=== PATIENT | female | born 1930 | race Caucasian/White ===

== ENCOUNTER → 2019-06-29 | Outpatient (CLI) | payer MEDICARE ==
[~2019-06-29] MED LIST: ALBU2.5V5 NEB; AMLO10TA4 PO; ASPI-630 PO; BUDE10.22 IH; CETI10TA24 PO; HYDR12.572 PO; ISOS30TA4 PO; MAGN200T7 PO; METO25TA4 PO; SIMV40TA18 PO; TIOT18CA IH
--- NOTE | 2019-06-29 10:42 | RAD ---
ANKLE LEFT 3V, FOOT LEFT 2V DATE: 06/29/2019 12:00 AM INDICATION: Ankle and foot pain COMPARISON: None. FINDINGS: Bones: Diffuse osseous demineralization, which impairs evaluation for nondisplaced fractures. Allowing for this, there is no evidence of acute fracture or dislocation. Remote healed lateral malleolus fracture. Posterior calcaneal enthesophyte. Joints: Mild degenerative changes of the ankle joint, midfoot, and forefoot. Miscellaneous: Diffuse soft tissue swelling. Atherosclerotic vascular calcifications IMPRESSION: No evidence of acute fracture. Mild degenerative changes. Electronically signed by: Thanh Patel MD (06/29/2019 10:39 AM) [id number]
== END | disposition home or self-care (01) ==
LOC: DXRAD 09:46
PROVIDERS: ATTEND Family Medicine
DX: M19.072 Primary osteoarthritis, left ankle and foot (principal); M77.8 Other enthesopathies, not elsewhere classified; I70.0 Atherosclerosis of aorta
CPT/HCPCS: 73610; 73620

== ENCOUNTER 2019-06-30 10:20 | Inpatient (IN) | payer MEDICARE ==
[~2019-06-30] VITALS: Ht 160 cm; Wt 77.2 kg
[2019-06-30] MEDS ORDERED: VANCOMYCIN PER PHARMACY MC ONE (10:45)
[2019-06-30] MEDS ORDERED: 0.9 % SODIUM CHLORIDE 10 ML DISP.SYRIN. IV PRN (10:45)
[2019-06-30] MEDS ORDERED: CEFEPIME HCL 2 GM in IV NORMAL SALINE 100ML 100 ML IV ONE (10:45)
--- NOTE | 2019-06-30 10:59 | PHYS DOC ---
General Adult EDM: Chief Complaint: ABNORMAL LABS HPI: HPI: 88-year-old female past medical history significant for hypertension, hyperlipidemia, [id number] diabetes on no medications, asthma and COPD, presents to the ED sent in by her primary physician Dr. Ospina with concern for lab abnormality. Labs drawn June 29 do show a white count of 27.8, 91% neutrophils. Patient reports she went to see her primary care physician due to bilateral lower extremity swelling and erythema. Does report a productive cough but believes it is due to her COPD. Lives with her daughter, 3-year-old granddaughter is being tested for COVID. No history of hospitalization the last 6 months, no intubations. Patient is a full code. Also reports a sore on her left buttock. Is wheelchair dependent due to OA. Not on AC. ROS: Denies associated fever, chills, dyspnea, orthopnea, hemoptysis, unilateral leg swelling, chest pressure, sore throat, nausea, vomiting, diarrhea, back pain, joint swelling, neck stiffness, headache. Current Medications: Current Meds: Current Medications Medications (Trade) Dose Ordered Sig/Yazan Start Time Stop Time Status Last Admin Dose Admin Cefepime HCl 2 gm/ Sodium Chloride 100 ml @ 200 mls/hr 1X ONCE 06/30/19 10:45 06/30/19 11:14 Sodium Chloride (Normal Saline Flush) 10 ml QSHIFT PRN 06/30/19 10:45 Vancomycin HCl (Vanco Per Pharmacy) 1 each 1X ONCE 06/30/19 10:45 06/30/19 10:56 DC Vancomycin HCl 2 gm/Sodium Chloride 500 ml @ 250 mls/hr 1X ONCE 06/30/19 11:30 06/30/19 13:29 Allergies: Allergies: Allergies Coded Allergies Type Severity Reaction Last Updated Verified No Known Drug Allergies 06/30/19 No Physical Exam: PE: Constitutional: Well developed, well nourished, no acute distress, non-toxic appearance. [] HENT: Normocephalic, atraumatic, bilateral external ears normal, oropharynx moist, no oral exudates, nose normal. [] Eyes: PERRLA, EOMI, conjunctiva normal, no discharge. [] Neck: Normal range of motion, no tenderness, supple, no stridor. [] Cardiovascular:Heart rate regular rhythm, no murmur [] Lungs & Thorax: Bilateral breath sounds, +productive cough, bilateral crackles -worse right lung base, no wheezing, speaking in full sentences, no respiratory distress Abdomen: Bowel sounds normal, soft, no tenderness, no masses, no pulsatile masses. [] Skin: Warm, dry, oncern for early cellulitis to both ankles with localized erythema Back: No tenderness, no CVA tenderness, early stage 1 sacral right decubitus ulcer Extremities: No tenderness, no cyanosis, no clubbing, ROM intact, bilateral lower extremity swelling Neurologic: Alert and oriented X 3, normal motor function, normal sensory function, no focal deficits noted. [] Psychologic: Affect normal, judgement normal, mood normal. [] EKG: EKG: Irregular rhythm concerning for atrial fibrillation, rate controlled at 91 bpm, no axis deviation, prolonged QRS, QTC 519, no ST elevations or ST depressions Radiology/Procedures: Radiology/Procedures: IMAGING REPORT Signed PATIENT: DAVID TERRAZAS ACCOUNT: [id number] : 1930 LOCATION: [facility] AGE: 88 SEX: F EXAM STATUS: REG CLI ORD. PHYSICIAN: MATTHEW OSPINA MD REASON: LEFT ANKLE AND FOOT PAIN PROCEDURE: FOOT LEFT 2V ANKLE LEFT 3V, FOOT LEFT 2V DATE: 06/29/2019 12:00 AM INDICATION: Ankle and foot pain COMPARISON: None. FINDINGS: Bones: Diffuse osseous demineralization, which impairs evaluation for nondisplaced fractures. Allowing for this, there is no evidence of acute fracture or dislocation. Remote healed lateral malleolus fracture. Posterior calcaneal enthesophyte. Joints: Mild degenerative changes of the ankle joint, midfoot, and forefoot. Miscellaneous: Diffuse soft tissue swelling. Atherosclerotic vascular calcifications IMPRESSION: No evidence of acute fracture. Mild degenerative changes. Electronically signed by: Lisa Patel MD (06/29/2019 10:39 AM) [id number] IMAGING REPORT Signed PATIENT: DAVID TERRAZAS ACCOUNT: [id number] : 1930 LOCATION: [facility] AGE: 88 SEX: F EXAM STATUS: REG CLI ORD. PHYSICIAN: MATTHEW OSPINA MD REASON: LEFT ANKLE AND FOOT PAIN PROCEDURE: ANKLE LEFT 3V ANKLE LEFT 3V, FOOT LEFT 2V DATE: 06/29/2019 12:00 AM INDICATION: Ankle and foot pain COMPARISON: None. FINDINGS: Bones: Diffuse osseous demineralization, which impairs evaluation for nondisplaced fractures. Allowing for this, there is no evidence of acute fracture or dislocation. Remote healed lateral malleolus fracture. Posterior calcaneal enthesophyte. Joints: Mild degenerative changes of the ankle joint, midfoot, and forefoot. Miscellaneous: Diffuse soft tissue swelling. Atherosclerotic vascular calcifications IMPRESSION: No evidence of acute fracture. Mild degenerative changes. Electronically signed by: Lisa Patel MD (06/29/2019 10:39 AM) [id number] DICTATED AND SIGNED BY: LISA PATEL MD DATE: 06/29/19 1039 IMAGING REPORT Signed PATIENT: DAVID TERRAZAS ACCOUNT: [id number] : 1930 LOCATION: ER AGE: 88 SEX: F EXAM STATUS: REG ER ORD. PHYSICIAN: ARIANNA ROJAS DO REASON: sepsis PROCEDURE: PORTABLE CHEST 1V PORTABLE CHEST 1V INDICATION: Sepsis. COMPARISON STUDY: None. FINDINGS: Rotation to the right. Lungs: Low lung volume. Prominent interstitial opacities. Indistinct central vasculature. Pleura: Small right pleural effusion. Heart and Mediastinum: Cardiomegaly. Tortuous thoracic aorta. IMPRESSION: 1. Prominent interstitial opacities and indistinct central vasculature, probably interstitial edema although superimposed infection not excluded. 2. Small right pleural effusion. Electronically signed by: Lisa Patel MD (06/30/2019 11:09 AM) [id number] DICTATED AND SIGNED BY: LISA PATEL MD DATE: 06/30/19 1104 CC: MATTHEW OSPINA MD; ARIANNA ROJAS DO ~ Impressions: Concern for sepsis with bl pna, early bl LE cellulitis. Started on broad spectrum abx. Agrees with plan for admission. COVID testing to be performed at admitting attendings' discretion. Course & Med Decision Making: Course & Med Decision Making Pertinent Labs and Imaging studies reviewed. (See chart for details) [] [place] Disclaimer: Dragon Disclaimer: This electronic medical record was generated, in whole or in part, using a voice recognition dictation system. Departure Departure: Impression: Primary Impression: Sepsis Additional Impressions: CAP (community acquired pneumonia) Lower extremity edema Disposition: ADMITTED INPATIENT Admitting Physician: Other (Dr. Chiu) Condition: GUARDED Referrals: MATTHEW OSPINA MD (PCP) ARIANNA ROJAS DO June 30, 2019 10:59
--- NOTE | 2019-06-30 11:12 | RAD ---
PORTABLE CHEST 1V INDICATION: Sepsis. COMPARISON STUDY: None. FINDINGS: Rotation to the right. Lungs: Low lung volume. Prominent interstitial opacities. Indistinct central vasculature. Pleura: Small right pleural effusion. Heart and Mediastinum: Cardiomegaly. Tortuous thoracic aorta. IMPRESSION: 1. Prominent interstitial opacities and indistinct central vasculature, probably interstitial edema although superimposed infection not excluded. 2. Small right pleural effusion. Electronically signed by: Thanh Patel MD (06/30/2019 11:09 AM) [id number]
[2019-06-30 11:14] LABS: BASO # 0.2 x10^3/uL (0.0-0.2); BASO % 1 % (0-3); EOS # 0.1 x10^3/uL (0.0-0.7); EOS % 0 % (0-3); HEMATOCRIT 38.3 % (36.0-47.0); HEMOGLOBIN 12.6 g/dL (12.0-15.5); LYMPH # 1.3 x10^3/uL (1.0-4.8); LYMPH % 7 % (24-48); MEAN CORPUSCULAR HEMOGLOBIN 31 pg (25-35); MEAN CORPUSCULAR HGB CONC 33 g/dL (31-37); MEAN CORPUSCULAR VOLUME 94 fL (79-100); MONO # 0.7 x10^3/uL (0.0-1.1); MONO % 4 % (0-9); NEUT % 88 % (31-73); PLATELET COUNT 323 x10^3/uL (140-400); RED BLOOD COUNT 4.08 x10^6/uL (3.50-5.40); RED CELL DISTRIBUTION WIDTH 13.9 % (11.5-14.5); WHITE BLOOD COUNT 18.3 x10^3/uL (4.0-11.0)
[2019-06-30 11:24] LABS: CALCIUM 8.9 mg/dL (8.5-10.1); CREATININE 0.8 mg/dL (0.6-1.0); GFR 67.5; POTASSIUM 3.9 mmol/L (3.5-5.1)
[2019-06-30] MEDS ORDERED: VANCOMYCIN 2 GM in IV NORMAL SALINE 500ML 500 ML IV ONE (11:30)
[2019-06-30 11:39] LABS: ALBUMIN 2.3 g/dL (3.4-5.0); DIRECT BILIRUBIN 0.2 mg/dL (0.0-0.2); TOTAL BILIRUBIN 0.5 mg/dL (0.2-1.0); TOTAL PROTEIN 7.3 g/dL (6.4-8.2)
[2019-06-30 11:48] LABS: % BANDS 3 % (0-9); % EOS 1 % (0-5); % LYMPHS 5 % (24-48); % MONOS 3 % (0-10); % SEGS 88 % (35-66); ANISOCYTOSIS SLIGHT; PLT ESTIMATE ADEQUATE (ADEQUATE); POLYCHROMASIA SLIGHT
[2019-06-30] MEDS ORDERED: IV NORMAL SALINE 100ML 100 ML ONE (12:39)
[2019-06-30] MEDS ORDERED: CEFEPIME HCL 2 GM VIAL IV ONE (12:39)
[2019-06-30 12:54] LABS: BILIRUBIN,URINE NEG (NEG); CLARITY,URINE HAZY; COLOR,URINE YELLOW; GLUCOSE,URINE NEG (NEG); NITRITE,URINE NEG (NEG); RBC,URINE OCC /HPF (0-2)
[2019-06-30 12:55] LABS: BACTERIA,URINE FEW /HPF (0-FEW); SQUAMOUS EPITHELIAL CELL,UR MANY /LPF
[2019-06-30 14:41] VITALS: BP 127/70
[2019-06-30] MEDS ORDERED: ACETAMINOPHEN 325 MG TABLET PO PRN (15:00)
[2019-06-30] MEDS ORDERED: ONDANSETRON PF 4 MG/2 ML VIAL. IVP PRN (15:00)
[2019-06-30] MEDS ORDERED: SIMV40TA18 PO (16:14)
[2019-06-30] MEDS ORDERED: METO25TA4 PO (16:14)
[2019-06-30] MEDS ORDERED: TIOT18CA IH (16:14)
[2019-06-30] MEDS ORDERED: ISOS30TA4 PO (16:14)
[2019-06-30] MEDS ORDERED: AMLO10TA4 PO (16:14)
[2019-06-30] MEDS ORDERED: ALBU2.5V5 NEB (16:14)
[2019-06-30] MEDS ORDERED: CETI10TA24 PO (16:14)
[2019-06-30] MEDS ORDERED: HYDR12.572 PO (16:14)
[2019-06-30] MEDS ORDERED: MAGN200T7 PO (16:14)
[2019-06-30] MEDS ORDERED: BUDE10.22 IH (16:14)
[2019-06-30] MEDS ORDERED: ASPI-630 PO (16:14)
[2019-06-30] MEDS ORDERED: AZITHROMYCIN 250 MG TABLET. PO ONE (16:45)
--- NOTE | 2019-06-30 16:55 | HP ---
ADMIT DATE: 06/30/2019 HISTORY OF PRESENT ILLNESS: The patient is an 88-year-old female patient who apparently was seen today at the Emergency Room. She apparently was sent by her primary care physician, Dr. Ospina with concern for lab abnormality. Her lab drawn on 06/30/2019 showed that her white cell count was 27,000 with 91% neutrophils. The patient reports that she went to see her primary care physician due to bilateral lower extremity swelling and erythema. She complained of cough, which is productive. She is currently living with her daughter, 3-year-old granddaughter. She thinks this is her COVID. She has no history of hospitalization for the last 6 months, no intubation. She also reports some sore on her left buttock. She is mostly wheelchair bound due to osteoarthritis. She has not walked for more than 10 years. She, however, managed to transfer from bed to chair and vice versa. She was basically investigated in the Emergency Room and her white cell count was down, it was found to be 18,300. Her prothrombin time, INR and APTT were normal. Her chemistry showed mild hyponatremia, but no lactic acidosis. Her albumin was low at 2.3. She has had a chest x-ray, showed prominent interstitial opacities, indistinct central vasculature, has also small right-sided pleural effusion, the heart and mediastinum showed cardiomegaly with tortuous thoracic aorta, prominent interstitial opacities, indistinct central vasculature, probably interstitial edema, although superimposed infection not excluded. She does have also a small right sided pleural effusion. The patient was admitted with community-acquired pneumonia, sepsis, and bilateral lower extremity edema. She was treated with cefepime and vancomycin. PAST MEDICAL HISTORY: Significant for hyperlipidemia, hypertension, bronchial asthma, COPD. She does have history of pneumonia, gastroesophageal reflux disease, she has a history of Clostridium difficile colitis and the last time she was admitted for pneumonia, has chronic renal failure, chronic pain syndrome, type 2 diabetes, chronic sinusitis. PAST SURGICAL HISTORY: Significant for cholecystectomy as well as lumpectomy. ALLERGIES: She has no known drug allergies. MEDICATIONS: She is currently on following medications: ___ magnesium 250 mg once a day, vitamin D3 1000 units daily, aspirin 81 mg once a day, Zyrtec 10 mg once a day, simvastatin 40 mg at bedtime, amlodipine 10 mg daily, Symbicort 80/4.5 mg 2 puffs twice a day, isosorbide mononitrate 30 mg daily, albuterol sulfate 2.5 mg 3 mL by nebulizer every 3-4 hours, Spiriva Respimat 1 inhalation once a day, metoprolol tartrate 25 mg twice a day, hydrochlorothiazide 12.5 mg once a day, and doxycycline 100 mg twice a day. FAMILY HISTORY: Positive for hypertension in her mother and son. She also has lung cancer and her sister was . SOCIAL HISTORY: She is , lives with her daughter. 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 She has never worked according to her. She used to smoke ____ for a week, although she has not smoked for a long time. She does not drink alcohol or use any recreational drugs. REVIEW OF SYSTEMS: As per history of present illness. PHYSICAL EXAMINATION: GENERAL: When I examined her today, she looked well and was clearly in no apparent respiratory distress. No pallor, jaundice, cyanosis or thyromegaly. No jugular venous distention. No limb edema. VITAL SIGNS: Her heart rate was 96, blood pressure was 127/70, temperature 96.7, respiratory rate was 18 and oxygen saturation was 96%. HEAD, EYES, EARS, NOSE AND THROAT: Showed normocephalic, atraumatic. NECK: Supple. HEART: Showed normal first and second heart sounds. No gallop, rub or murmur. CHEST: Showed central trachea, equal bilateral expansion, air entry, vesicular sounds with bilateral coarse breath sounds. I could not hear any wheezing. ABDOMEN: Distended, soft, nontender. No guarding or rigidity. No organomegaly. All hernial orifice intact. Bowel sounds normal. NEUROLOGIC: She is very hard of hearing, but otherwise all her cranial nerves are intact. She moves her upper extremities without difficulty. She has bilateral foot drop. Her right lower extremity is erythematous, has bilateral foot drop. She has bilateral lower limb edema with erythema mostly on the right side. LABORATORY DATA: Her lab work on arrival to the Emergency Room showed a serum sodium 131, potassium 3.9, chloride 93, bicarbonate 32, anion gap of 6, BUN 19, creatinine 0.8. Her estimated GFR was 67 mL per minute. Her glucose 126. Lactic acid was 1.3, calcium was 8.9. Total bilirubin, AST, ALT, alkaline phosphatase were normal. Total protein was 7.3, albumin 2.3. Prothrombin time, INR and APTT are normal. Urinalysis was essentially unremarkable. Her chest x-ray showed low lung volume and prominent interstitial opacities, indistinct central vasculature. ASSESSMENT AND PLAN: The patient was admitted to be treated for probably community-acquired pneumonia as well as right lower extremity cellulitis. My plan is, given her chronic kidney disease, I would change her to Zyvox 600 mg IV twice a day. Continue with cefepime for now and monitor her labs closely. She also be checked here for COVID-19. GERBER SULLIVAN MD DR: RAGHU/wayne JOB#: [id number] / [id number]
[2019-06-30] MEDS ORDERED: ALBUTEROL SULFATE 8GM INHALER. INH PRN (19:45)
[2019-06-30] MEDS ORDERED: DEXTROSE 50% 25 GM / 50ML DISP.SYRIN. IV PRN (19:45)
[2019-06-30 19:50] VITALS: BP 106/52
[2019-06-30] MEDS: METOPROLOL TART IMMED RELEASE 25 MG TABLET PO SCH (20:09)
[2019-06-30] MEDS: ATORVASTATIN CALCIUM 20 MG TABLET PO SCH (20:12)
[2019-06-30 22:34] VITALS: BP 107/58
--- NOTE | 2019-06-30 23:05 | EKG ---
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
[2019-07-01] VITALS (12 sets, daily range): BP systolic 95–128; BP diastolic 37–66
[2019-07-01 06:56] LABS: HEMATOCRIT 32.4 % (36.0-47.0); HEMOGLOBIN 10.6 g/dL (12.0-15.5); RED BLOOD COUNT 3.46 x10^6/uL (3.50-5.40); RED CELL DISTRIBUTION WIDTH 13.7 % (11.5-14.5); WHITE BLOOD COUNT 12.7 x10^3/uL (4.0-11.0)
[2019-07-01 07:03] LABS: ALBUMIN 1.7 g/dL (3.4-5.0); GFR 94.1; POTASSIUM 3.2 mmol/L (3.5-5.1)
[2019-07-01 07:12] LABS: ALBUMIN/GLOBULIN RATIO 0.4 (1.0-1.7); CREATININE 0.6 mg/dL (0.6-1.0); TOTAL BILIRUBIN 0.3 mg/dL (0.2-1.0); TOTAL PROTEIN 5.9 g/dL (6.4-8.2)
[2019-07-01] MEDS: INSULIN LISPRO 300 UNITS/3 ML VIAL. SQ SCH ×3 (08:47→17:00)
[2019-07-01] MEDS ORDERED: amLODIPine BESYLATE 10 MG TABLET PO SCH (09:00)
[2019-07-01] MEDS: LACTOBACILLUS RHAMNOSUS GG 1 CAPSULE. PO SCH ×2 (09:00→21:00)
[2019-07-01] MEDS ORDERED: MAGNESIUM OXIDE 400 MG TABLET PO SCH (09:00)
[2019-07-01] MEDS: CETIRIZINE HCL 10 MG TABLET PO SCH (09:01)
[2019-07-01] MEDS: AZITHROMYCIN 250 MG TABLET. PO SCH (09:02)
[2019-07-01] MEDS: ASPIRIN CHEWABLE 81 MG TABLET. PO SCH (09:03)
[2019-07-01] MEDS: FLUTICASONE/VILANTEROL 100/25 INHALER. INH SCH (09:05)
[2019-07-01] MEDS: METOPROLOL TART IMMED RELEASE 25 MG TABLET PO SCH ×2 (09:19→21:03)
[2019-07-01] MEDS: ISOSORBIDE MONONITRATE ER 30 MG TAB.ER.24H PO SCH (09:19)
[2019-07-01] MEDS ORDERED: MAGNESIUM SULFATE 2GM 50 ML IV ONE (13:00)
[2019-07-01] MEDS ORDERED: POTASSIUM CHLORIDE 20 MEQ TABLET.ER. PO ONE ×2 (13:10→15:00)
[2019-07-01] MEDS: MAGNESIUM OXIDE 400 MG TABLET PO SCH ×3 (14:00→21:01)
[2019-07-01 17:49] LABS: CALCIUM 8.6 mg/dL (8.5-10.1); CREATININE 0.8 mg/dL (0.6-1.0); GFR 67.5
--- NOTE | 2019-07-01 20:01 | PN ---
DATE: SUBJECTIVE: The patient is resting, slightly propped up in bed, no apparent distress. She is hard of hearing. On questioning her, denied any complaint except pain in her back. Denied any cough or phlegm. PHYSICAL EXAMINATION: GENERAL: When I examined her this morning, she looked well and was clearly in no apparent respiratory distress. She was pale. No jaundice, cyanosis or thyromegaly. No jugular venous distention. She has mild bilateral lower limb edema. VITAL SIGNS: Her heart rate was 77, blood pressure was 105/57, temperature was 98.8, respiratory rate was 95 and oxygen saturation was 95% on 2 liters of oxygen. HEAD, EYES, EARS, NOSE AND THROAT: Showed normocephalic, atraumatic. NECK: Supple. HEART: Showed normal first and second heart sounds. No gallop or murmur. CHEST: Shows central trachea, equal bilateral expansion, air entry, vesicular sounds with crepitation mostly posteriorly bilaterally. Very few scattered rhonchi. ABDOMEN: Distended, soft, nontender. NEUROLOGIC: She is awake, alert, responding appropriately. She is very hard of hearing, but all other cranial nerves are intact. She moves upper extremities without difficulty, has functional paraplegia. She has been chair bound and bed bound for years according to her. Her intake and output are incompletely recorded. LABORATORY DATA: Her lab this morning showed her white cell count is down to 12,700, hemoglobin 10.6, hematocrit 32, MCV 94 and platelet count 302,000. Her serum sodium is 131, potassium 3.2, chloride 96, bicarbonate 30, anion gap of 5, BUN 12, creatinine 0.6, estimated GFR was 94 mL per minute. Her glucose was 99, calcium was 8, magnesium was 1.3. Total bilirubin, AST, ALT, alkaline phosphatase were normal. Total protein was 5.9, albumin was 1.7. Her prothrombin time, INR and aPTT are normal. Urinalysis showed the urine has 1-4 wbc's. Her COVID-19 by PCR was negative. Her blood cultures showed no growth after one day. ASSESSMENT: 1. Community-acquired pneumonia, possible and mild right lower extremity cellulitis. She seems to be doing much better. Her white cell count is down. 2. Acute kidney injury, improving. Her creatinine is down to 0.6; however, she has hypokalemia and hypomagnesemia as well as hyponatremia. OTHER MEDICAL PROBLEMS: Include: A. Hyperlipidemia. B. Hypertension. C. Bronchial asthma. D. COPD. E. Gastroesophageal reflux disease. F. History of Clostridium difficile colitis. G. Chronic renal failure. H. Chronic pain syndrome. I. Type 2 diabetes mellitus. PLAN: My plan is to continue with replenish her potassium, magnesium. Meanwhile, we will continue with IV Rocephin and Zyvox as well as Zithromax. Continue with all other medication. I will probably hold her. I will continue to monitor her blood sugar and adjust insulin as needed. I will probably cut down on her amlodipine to 5 mg once a day. She is on multiple antihypertensive medications including amlodipine, isosorbide mononitrate and metoprolol. GERBER SULLIVAN MD DR: RAGHU/wayne JOB#: [id number] / [id number]
[2019-07-01] MEDS: ATORVASTATIN CALCIUM 20 MG TABLET PO SCH (21:01)
[2019-07-02] VITALS (7 sets, daily range): BP systolic 96–145; BP diastolic 34–69
[2019-07-02 06:40] LABS: HEMATOCRIT 32.8 % (36.0-47.0); HEMOGLOBIN 10.7 g/dL (12.0-15.5); RED BLOOD COUNT 3.47 x10^6/uL (3.50-5.40); RED CELL DISTRIBUTION WIDTH 13.7 % (11.5-14.5); WHITE BLOOD COUNT 9.8 x10^3/uL (4.0-11.0)
[2019-07-02 07:04] LABS: ALBUMIN 1.8 g/dL (3.4-5.0); ALBUMIN/GLOBULIN RATIO 0.4 (1.0-1.7); CREATININE 0.6 mg/dL (0.6-1.0); GFR 94.1; POTASSIUM 4.3 mmol/L (3.5-5.1); TOTAL BILIRUBIN 0.3 mg/dL (0.2-1.0); TOTAL PROTEIN 5.9 g/dL (6.4-8.2)
[2019-07-02] MEDS: INSULIN LISPRO 300 UNITS/3 ML VIAL. SQ SCH ×3 (08:00→17:00)
[2019-07-02] MEDS: CETIRIZINE HCL 10 MG TABLET PO SCH (10:01)
[2019-07-02] MEDS: METOPROLOL TART IMMED RELEASE 25 MG TABLET PO SCH ×2 (10:01→20:34)
[2019-07-02] MEDS: ASPIRIN CHEWABLE 81 MG TABLET. PO SCH (10:01)
[2019-07-02] MEDS: AZITHROMYCIN 250 MG TABLET. PO SCH (10:01)
[2019-07-02] MEDS: LACTOBACILLUS RHAMNOSUS GG 1 CAPSULE. PO SCH ×2 (10:02→20:34)
[2019-07-02] MEDS: ISOSORBIDE MONONITRATE ER 30 MG TAB.ER.24H PO SCH (10:02)
[2019-07-02] MEDS: MAGNESIUM OXIDE 400 MG TABLET PO SCH ×3 (10:02→20:34)
[2019-07-02] MEDS: FLUTICASONE/VILANTEROL 100/25 INHALER. INH SCH (10:03)
[2019-07-02] MEDS ORDERED: FUROSEMIDE 20 MG/2 ML VIAL IVP ONE (13:00)
--- NOTE | 2019-07-02 13:21 | PN ---
DATE: 07/02/2019 SUBJECTIVE: The patient is resting slightly propped up in bed, no apparent distress. She continues to have cough that seems to be productive and seems to be congested. She has bilateral lower limb edema however. PHYSICAL EXAMINATION: GENERAL: On examining her, she looked well, slightly pale, but no jaundice, cyanosis or thyromegaly. No jugular venous distention. No limb edema. VITAL SIGNS: Her heart rate was 79, blood pressure was 122/67, temperature was 97.6, respiratory rate was 18 and oxygen saturation was 97%. HEAD, EYES, EARS, NOSE AND THROAT: Showed normocephalic, atraumatic. NECK: Supple. HEART: Showed normal first and second heart sounds. No gallop, rub or murmur. CHEST: Clear to auscultation. No crepitation or rhonchi. ABDOMEN: Distended, soft, nontender. No guarding or rigidity. No organomegaly. All hernial orifice intact. Bowel sounds normal. NEUROLOGIC: She was awake, alert, responding appropriately. All cranial nerves intact. She moves upper extremities without difficulty. She has functional paraplegia. She is mostly bedbound, chair bound. EXTREMITIES: Showed bilateral lower extremity edema. She has also onychomycosis of all her toenails. ASSESSMENT: 1. Community-acquired pneumonia and mild right lower extremity cellulitis. She seems to be doing much better. Her white cell count is trending down. Today, her white cell count is 9800 from 18,000. The erythema of her right lower extremity has largely subsided. 2. Acute kidney injury, improving. Her creatinine is down to 0.6 mg, hypokalemia and hypomagnesemia have also improved. Her serum sodium is 134, potassium 4.3, and magnesium was 1.7. 3. Other medical problems include: A. Hyperlipidemia. B. Hypertension. C. Bronchial asthma. D. Chronic obstructive pulmonary disease. E. Gastroesophageal reflux disease. F. History of Clostridium difficile colitis. G. Chronic renal failure. H. Chronic pain syndrome. I. Type 2 diabetes mellitus. PLAN: To continue to replenish her potassium and magnesium. Continue with IV Rocephin, Zithromax, and Zyvox. I will give her 1 dose of Lasix 20 mg IV tonight. We will repeat her lab work tomorrow. I have discontinued her amlodipine as might be the cause of her bilateral lower extremity edema and repeat her chest x-ray and hopefully discharge her home tomorrow. GERBER SULLIVAN MD DR: RAGHU/wayne JOB#: [id number] / [id number]
[2019-07-02] MEDS: ATORVASTATIN CALCIUM 20 MG TABLET PO SCH (20:34)
[2019-07-03 06:10] LABS: HEMATOCRIT 31.1 % (36.0-47.0); HEMOGLOBIN 10.2 g/dL (12.0-15.5); RED BLOOD COUNT 3.31 x10^6/uL (3.50-5.40); RED CELL DISTRIBUTION WIDTH 13.5 % (11.5-14.5); WHITE BLOOD COUNT 9.4 x10^3/uL (4.0-11.0)
[2019-07-03 06:18] LABS: ALBUMIN 1.7 g/dL (3.4-5.0); ALBUMIN/GLOBULIN RATIO 0.4 (1.0-1.7); CREATININE 0.6 mg/dL (0.6-1.0); GFR 94.1; TOTAL BILIRUBIN 0.3 mg/dL (0.2-1.0); TOTAL PROTEIN 5.8 g/dL (6.4-8.2)
[2019-07-03 06:27] VITALS: BP 127/51
[2019-07-03] MEDS: INSULIN LISPRO 300 UNITS/3 ML VIAL. SQ SCH ×2 (08:00→12:00)
[2019-07-03] MEDS: LACTOBACILLUS RHAMNOSUS GG 1 CAPSULE. PO SCH (08:08)
[2019-07-03] MEDS: ASPIRIN CHEWABLE 81 MG TABLET. PO SCH (08:08)
[2019-07-03] MEDS: AZITHROMYCIN 250 MG TABLET. PO SCH (08:08)
[2019-07-03] MEDS: CETIRIZINE HCL 10 MG TABLET PO SCH (08:09)
[2019-07-03] MEDS: METOPROLOL TART IMMED RELEASE 25 MG TABLET PO SCH (08:09)
[2019-07-03] MEDS: MAGNESIUM OXIDE 400 MG TABLET PO SCH (08:10)
[2019-07-03] MEDS: ISOSORBIDE MONONITRATE ER 30 MG TAB.ER.24H PO SCH (08:10)
[2019-07-03] MEDS: FLUTICASONE/VILANTEROL 100/25 INHALER. INH SCH (08:13)
[2019-07-03 08:17] VITALS: BP 124/61
[2019-07-03 10:34] VITALS: BP 122/65
[2019-07-03] MEDS ORDERED: AZIT250T PO (12:48)
[2019-07-03] MEDS ORDERED: CEFD300C PO (12:48)
--- NOTE | 2019-07-03 12:58 | DISCH ---
HOME HEALTH DISCHARGE/MEDS DISCHARGE INFORMATION: Discharge Date: July 03, 2019 Final Diagnosis: Problems Medical Problems: (1) CAP (community acquired pneumonia) Status: Acute (2) Lower extremity edema Status: Acute (3) Sepsis Status: Acute Condition on Discharge: Stable CODE STATUS: Code Status: Full HOME HEALTH: Face to Face: I certify this patient is under my care and that I, or a nurse practitioner or physician's licensed physical therapist assistant working with me, had a face to face encounter that meets the physician face to face encounter requirements with this patient on 07/03/19 Medical Condition(s): Pneumonia [facility] For: Admin/Educate Injections Physical Therapy For: Evalulation/Treatment Occupational Therapy For: Evaluation/Treatment Homebound Status Met By: Extreme weakness w/ amb. POST DISCHARGE ORDERS: Activity Instructions for Disc: Resume previous activity CERTIFICATION STATEMENT: Certification Statement: Based on the above finding, I certify that this patient is confined to the home and needs intermittent senior care care, physical therapy and/or speech therapy, or continues to need occupational therapy.~ This patient is under my care, and I have initiated the establishment of the plan of care.~ This patient will be followed by myself or a community physician who will periodically review the plan of care. DISCHARGE MEDICATIONS: Home Meds Active Scripts Azithromycin (ZITHROMAX) 250 Mg Tablet, 250 MG PO DAILY for ANTI-BIOTIC for 3 Days, #3 TAB 0 Refills Prov:GERBER SULLIVAN MD 07/03/19 Cefdinir (CEFDINIR) 300 Mg Capsule, 1 CAP PO BID for cap for 7 Days, #14 CAP Prov:GERBER SULLIVAN MD 07/03/19 Reported Medications Hydrochlorothiazide (HYDROCHLOROTHIAZIDE CAPSULE ) 12.5 Mg Capsule, 12.5 MG PO DAILY for DIURETIC, CAP 0 Refills 06/30/19 Metoprolol Tartrate (METOPROLOL TARTRATE) 25 Mg Tablet, 1 TAB PO BID for BP, #180 TAB 1 Refill 06/30/19 Tiotropium [place] (SPIRIVA) 18 Mcg Cap.w.dev, 1 CAP IH DAILY for COPD, #30 CAP 3 Refills 06/30/19 Albuterol Sulfate (ALBUTEROL SULFATE NEB SOLN ) 2.5 Mg/3 Ml Vial.neb, 1 VIAL NEB PRN Q4HRS for COPD, #50 VIAL 06/30/19 Isosorbide Mononitrate (ISOSORBIDE MONONITRATE ER) 30 Mg Tab.er.24h, 1 TAB PO DAILY for heart, #30 TAB 5 Refills 06/30/19 Budesonide/Formoterol Fumarate (SYMBICORT 80-4.5 MCG INHALER) 10.2 Gm Hfa.aer.ad, 2 PUFF IH BID for COPD, #10.2 GM 5 Refills 06/30/19 Simvastatin (SIMVASTATIN) 40 Mg Tablet, 1 TAB PO QHS for HLD, #30 TAB 5 Refills 06/30/19 Cetirizine Hcl (ZYRTEC) 10 Mg Tablet, 1 TAB PO DAILY for allergic rhinitis, #30 TAB 2 Refills 06/30/19 Aspirin (ASPIRIN) 81 Mg Tab.chew, 81 MG PO DAILY for Heart, TAB 06/30/19 Magnesium Oxide (Mag-Oxide) 200 Mg Tablet, 1 TAB PO DAILY for supplement for 30 Days, #30 TAB 0 Refills 06/30/19 Discontinued Reported Medications Amlodipine Besylate (NORVASC) 10 Mg Tablet, 1 TAB PO DAILY for BP, #30 TAB 5 Refills 06/30/19 GERBER SULLIVAN MD July 03, 2019 12:58
--- NOTE | 2019-07-03 13:32 | DS ---
DATE OF DISCHARGE: 07/03/2019 HOSPITAL COURSE: The patient is resting, slightly propped up in bed, in no apparent distress. On questioning her, denied any complaint. In particular, she denied any further episodes of cough or phlegm. Denied any chest pain, shortness of breath. The erythema of the right lower extremity has resolved. Her swelling also has much improved. PHYSICAL EXAMINATION: GENERAL: When I examined her this morning, she looked well and was clearly in no apparent respiratory distress. No pallor, jaundice, cyanosis or thyromegaly. No jugular venous distention. Mild bilateral limb edema. VITAL SIGNS: Her heart rate was 83, blood pressure was 122/65, temperature was 97.8, respiratory rate was 16, and oxygen saturation was 97% on room air. HEAD, EYES, EARS, NOSE AND THROAT: Showed normocephalic, atraumatic. NECK: Supple. CARDIAC: Normal first and second heart sounds. No gallop or murmur. CHEST: Shows central trachea, equal bilateral chest expansion, air entry, vesicular sounds, very few crepitations posteriorly bilaterally. I could not appreciate any rhonchi. ABDOMEN: Distended, soft, nontender. NEUROLOGIC: She is awake, alert, responding appropriately. All cranial nerves intact. She moves upper extremities without difficulty. She has functional paraplegia. She is mostly bedbound, chair bound. Her intake over the last 24 hours was 1600, output was 2000. LABORATORY DATA: As of this morning, her white cell count was 9400, hemoglobin 10, hematocrit 31, MCV 94 and platelet count 318,000. Her chemistry showed her serum sodium is 131, potassium 4, chloride 94, bicarbonate 34, anion gap of 3, BUN 10, creatinine 0.6, estimated GFR was 94 mL per minute. Her glucose 102, calcium was 8. Total bilirubin, AST, ALT, alkaline phosphatase were normal. Total protein was 5.8, albumin was 1.7. Her prothrombin time, INR and aPTT were normal. Urinalysis was essentially unremarkable. Her COVID-19 by PCR was negative. ASSESSMENT: 1. Community-acquired pneumonia. Mild lower extremity cellulitis, resolved. Her white cell count is normalized. She has been afebrile. The erythema of her right lower extremity has completely resolved. 2. Acute kidney injury, improving. Creatinine is down to 0.6 mg/dL. Hypokalemia and hypomagnesemia have also improved. Her serum sodium is 133, potassium 4, magnesium was 1.8. 3. Other medical problems including: A. Hyperlipidemia. B. Hypertension. C. Bronchial asthma. D. Chronic obstructive pulmonary disease. E. Gastroesophageal reflux disease. F. History of Clostridium difficile colitis. G. Chronic renal failure. H. Chronic pain syndrome. I. Type 2 diabetes mellitus. DISCHARGE MEDICATIONS: The patient was discharged home to continue on azithromycin 250 mg once a day for 3 more days and cefdinir 300 mg twice a day for 7 days. Should continue also on albuterol sulfate by nebulizer every 4 hours, amlodipine besylate 10 mg once a day, aspirin 81 mg once a day, Symbicort 2 puffs twice a day, cetirizine 10 mg once a day, hydrochlorothiazide 12.5 mg once a day, isosorbide mononitrate 30 mg once a day, magnesium oxide 200 mg once a day, metoprolol tartrate 25 mg twice a day, simvastatin 40 mg once a day at bedtime and tiotropium bromide for Spiriva HandiHaler 1 inhalation once a day. As her blood pressure is borderline low, I actually discontinued her amlodipine. GERBER SULLIVAN MD DR: RAGHU/wayne JOB#: [id number] / [id number]
--- NOTE | 2019-07-04 17:50 | SSS ---
ADMIT DATE: HISTORY OF PRESENT ILLNESS: The patient is an 88-year-old female patient who was discharged yesterday 07/03/2019. She was admitted with cough DICTATION ENDS HERE GERBER SULLIVAN MD DR: RAGHU/wayne JOB#: [id number] / [id number]
== END 2019-07-03 14:25 | disposition home health service (06) | DRG 871 ==
LOC: ER 10:20 → 1 SOUTH 13:06 → ICU 19:39 → 1 SOUTH 07-02 06:34
PROVIDERS: ADMIT Internal Medicine; ATTEND Internal Medicine
DX: A41.9 Sepsis, unspecified organism (principal); J18.9 Pneumonia, unspecified organism; E87.1 Hypo-osmolality and hyponatremia; J90 Pleural effusion, not elsewhere classified; J44.0 Chronic obstructive pulmonary disease with (acute) lower respiratory infection; L03.115 Cellulitis of right lower limb; N17.9 Acute kidney failure, unspecified; E11.22 Type 2 diabetes mellitus with diabetic chronic kidney disease; E83.42 Hypomagnesemia; E78.5 Hyperlipidemia, unspecified; E87.6 Hypokalemia; G89.4 Chronic pain syndrome; H91.90 Unspecified hearing loss, unspecified ear; I12.9 Hypertensive chronic kidney disease with stage 1 through stage 4 chronic kidney disease, or unspecified chronic kidney disease; K21.9 Gastro-esophageal reflux disease without esophagitis; M19.90 Unspecified osteoarthritis, unspecified site; N18.9 Chronic kidney disease, unspecified; Z80.1 Family history of malignant neoplasm of trachea, bronchus and lung; Z82.49 Family history of ischemic heart disease and other diseases of the circulatory system; Z86.19 Personal history of other infectious and parasitic diseases; Z87.01 Personal history of pneumonia (recurrent); Z87.891 Personal history of nicotine dependence; Z99.3 Dependence on wheelchair; Z79.84 Long term (current) use of oral hypoglycemic drugs; Z79.899 Other long term (current) drug therapy; Z90.49 Acquired absence of other specified parts of digestive tract; Z20.828 Contact with and (suspected) exposure to other viral communicable diseases
CPT/HCPCS: 36415; 71045; 80048; 80053; 80076; 81001; 82550; 82947; 83605; 83690; 83735; 83880; 84484; 85007; 85025; 85027; 85610; 85730; 87040; 87086; 87635; 93005; 96365; 96375; 99285; J0456; J0692; J0696; J1815; J2020; J3370; J3475; J7040; J7613

== ENCOUNTER 2019-07-03 19:32 | Inpatient (IN) | payer MEDICARE ==
[~2019-07-03] VITALS: Ht 160 cm; Wt 81.1 kg
[~2019-07-03 19:32] MED LIST changes: +AZIT250T PO; +CEFD300C PO
[2019-07-03] MEDS: IV RINGERS SOLUTION,LACTATED 1,000 ML IV SCH (19:42)
--- NOTE | 2019-07-03 19:42 | PHYS DOC ---
Past History Past Medical History: Asthma, COPD, Hypertension Past Surgical History: No Surgical History Alcohol Use: None General Adult HPI: HPI: "..I just left the hospital... I was seeing Adele... and she seen .. I had that red spot on the back of my Rt. leg.. .. said needed to get US.. or something.. to make sure.. it was not a clot .. and I am so weak...She said ..I to get...some more labs.. I can't hardly get around... I was admitted for pneumonia.. just a few days. .. I hope.. I don't have to come back..in.. ." Patient is a 88 year old female who presents with above hx and complaints of possible blood clott Rt. calf. and increased weakness The pt. sent from Adele office for evaluation of DVT. Pt. recently admitted for community- acquired pneumonias and right lower limb cellulitis on 06/30/2019. Patient does have a significant medical history for hyperlipidemia asthma, br onchitis, hypertension, COPD, pneumonia, GERD, C-dif, chronic renal failure, chronic pain, diabetes, sinusitis, and deconditioned. Patient sent from Dr. Angulo office for ultrasound of right leg. Daughter concerned that she is too weak to go home. Pt. hx. of Covid 19 negative. Review of Systems: Review of Systems: Constitutional: Denies fever or chills Eyes: Denies change in visual acuity HENT: Denies nasal congestion or sore throat Respiratory: Hx. of cough and shortness of breath Cardiovascular: Denies chest pain or edema GI: Denies abdominal pain, nausea, vomiting, bloody stools or diarrhea : Denies dysuria Musculoskeletal: Denies back pain or joint pain . Complaints of generalized weakness Integument: Complains of cellulitis on Rt.. calf. Neurologic: Denies headache, focal weakness or sensory changes Endocrine: Denies polyuria or polydipsia Lymphatic: Denies swollen glands Psychiatric: Denies depression or anxiety Heart Score: HEART Score for Chest Pain: HEART Score for Chest Pain Response (Comments) Value History Moderately Suspicious 1 ECG Nonspecific Repolarizatio 1 Age > 65 2 Risk Factors >3 Risk Factors or Hx CAD 2 Troponin < Normal Limit 0 Total 6 Risk Factors: Risk Factors: DM, Current or recent (<one month) smoker, HTN, HLP, family history of CAD, obesity. Risk Scores: Score 0 - 3: 2.5% MACE over next 6 weeks - Discharge Home Score 4 - 6: 20.3% MACE over next 6 weeks - Admit for Clinical Observation Score 7 - 10: 72.7% MACE over next 6 weeks - Early Invasive Strategies Family History: Family History: Family history hypertension, sister from lung cancer. Current Medications: Current Meds: See nursing for home meds Allergies: Allergies: Allergies Coded Allergies Type Severity Reaction Last Updated Verified No Known Drug Allergies 06/30/19 No Physical Exam: PE: Constitutional: Moderate acute distress, non-toxic appearance. [] HENT: Normocephalic, atraumatic, bilateral external ears normal, oropharynx moist, no oral exudates, nose normal. [] Eyes: PERRLA, EOMI, conjunctiva normal, no discharge. Glasses Neck: Normal range of motion, no tenderness, supple, no stridor. [] Cardiovascular: Tachycardia occasional PVC per monitor and PACs, PMI to Lt. Lungs & Thorax: Bilateral breath sounds equal at apex with scattered wheezes and basilar crackles on auscultation [] Abdomen: Bowel sounds decreased, soft, no tenderness, no masses, no pulsatile masses. Old surgery scars Skin: Warm, dry, no erythema, no rash. Poor turgor. Area of cellulitis behind right calf. Back: No tenderness, no CVA tenderness. [] Extremities: No tenderness, no cyanosis, no clubbing, ROM intact, lower leg bilateral edema. Right leg slightly more erythemic. Does have a posterior area of cellulitis. No appreciable cording. Does have generalized weakness Neurologic: Alert and oriented X 3, normal motor function, normal sensory function, no focal deficits noted. [] Psychologic: Affect anxious, judgement normal, mood normal. [] EKG: EKG: My interpretation EKG shows a sinus tachycardia at 109 bpm. There PACs, there is some nonspecific contour changes, strain pattern. [] Radiology/Procedures: Radiology/Procedures: [[address] [place] [id number] IMAGING REPORT Signed PATIENT: DAVID TERRAZAS ACCOUNT: [id number] : 1930 LOCATION: ER AGE: 88 SEX: F EXAM STATUS: REG ER ORD. PHYSICIAN: DANETTE MORRIS MD REASON: dyspnea PROCEDURE: PORTABLE CHEST 1V INDICATION: Dyspnea COMPARISON: June 30, 2019 FINDINGS: Single view of chest obtained. Interstitial opacities are again seen bilaterally as well as a hazy opacity at the right lung base. Cardiac mediastinal silhouette is mildly prominent but similar to prior. Degenerative changes of the spine. Air-filled prominence of loop of bowel left upper quadrant again seen and could be stomach bubble.Degenerative changes of shoulders. IMPRESSION: * Repeat demonstration of interstitial opacities bilaterally which could be from mild edema or interstitial infiltrate. There is also a focal opacity at the right lung base which could be from atelectasis, infiltrate or aspiration with a component of small pleural effusion also within the differential. Electronically signed by: Henri Florian MD (07/03/2019 8:42 PM) [id number] DICTATED AND SIGNED BY: HENRI FLORIAN MD DATE: 07/03/192041 CC: MATTHEW PAYAN MD; DANETTE MORRIS MD ~ ][place] [address] IMAGING REPORT Signed PATIENT: DAVID TERRAZAS ACCOUNT: [id number] : 1930 LOCATION: ER AGE: 88 SEX: F EXAM STATUS: REG ER ORD. PHYSICIAN: DANETTE MORRIS MD REASON: edema, pain, and erythema, recent hospitalized-concern for acute PROCEDURE: VENOUS LOWER EXTREMITY RIGHT Right lower extremity venous duplex Doppler ultrasound HISTORY: Right leg pain, edema and erythema. FINDINGS: No DVT by grayscale imaging with compressibility, patent color Doppler blood flow and augmentation of blood flow and respiratory variability right common femoral vein, greater saphenous vein in the upper thigh, profunda femoral vein, superficial femoral vein and popliteal vein. No DVT evident with patent color Doppler blood flow the posterior tibial peroneal veins in the calf. IMPRESSION: Negative right leg for DVT. Electronically signed by: Ellen Traylor MD (07/03/2019 9:37 PM) [facility] [place] DICTATED AND SIGNED BY: ELLEN TRAYLOR MD DATE: 07/03/192136 CC: MATTHEW PAYAN MD; DANETTE MORRIS MD ~ Course & Med Decision Making: Course & Med Decision Making Pertinent Labs and Imaging studies reviewed. (See chart for details) Pt. admitted to Dr. Chiu for Observation- Impression: 1. Weakness 2. Hx. Community-acquired pneumonia- 3. Rt. lower calf cellulitis- ( No DVT per US) 4. Leukocytosis 17.8- with 80 Segs. 5. Anemia 11.5 6. Elevated D-dimer 2.15 7. Hyponatremia 130 8. Hypomagnesium 1.4 9. Malnutrition Alb. 2.9 [] Dragon Disclaimer: Dragon Disclaimer: This electronic medical record was generated, in whole or in part, using a voice recognition dictation system. Departure Departure: Disposition: 01 HOME/RESIDENCE PRIOR TO ADM Condition: STABLE Referrals: MATTHEW PAYAN MD (PCP) Dragon Disclaimer This chart was dictated in whole or in part using Voice Recognition software in a busy, high-work load, and often noisy Emergency Department environment. It may contain unintended and wholly unrecognized errors or omissions. Dragon Disclaimer This chart was dictated in whole or in part using Voice Recognition software in a busy, high-work load, and often noisy Emergency Department environment. It may contain unintended and wholly unrecognized errors or omissions. DANETTE MORRIS MD July 03, 2019 19:42
--- NOTE | 2019-07-03 19:54 | EKG ---
[address] [address] Test Date: 2019-07-03 Test Time: 19:50:06 Pat Name: DAVID TERRAZAS Department: Room: Gender: F Machine Builder: : 1930 Requested By: DANETTE MORRIS Order Number: [id number] Reading MD: Manish Armas Measurements Intervals Animas Rate: 109 P: 51 IA: 154 QRS: -31 QRSD: 90 T: 23 QT: 332 QTc: 449 Interpretive Statements SINUS TACHYCARDIA ATRIAL PREMATURE COMPLEX(ES) QRS(T) CONTOUR ABNORMALITY CONSISTENT WITH SEPTAL INFARCT AGE UNDETERMINED ABNORMAL ECG Electronically Signed On 07-04-2019 7:59:01 CDT by Manish Armas
[2019-07-03 20:39] LABS: BASO % 0 % (0-3); EOS % 0 % (0-3); HEMATOCRIT 35.4 % (36.0-47.0); HEMOGLOBIN 11.5 g/dL (12.0-15.5); LYMPH % 11 % (24-48); MEAN CORPUSCULAR HEMOGLOBIN 31 pg (25-35); MEAN CORPUSCULAR HGB CONC 33 g/dL (31-37); MEAN CORPUSCULAR VOLUME 94 fL (79-100); MONO # 1.4 x10^3/uL (0.0-1.1); MONO % 8 % (0-9); NEUT # 14.5 x10^3uL (1.8-7.7); NEUT % 81 % (31-73); PLATELET COUNT 367 x10^3/uL (140-400); RED BLOOD COUNT 3.76 x10^6/uL (3.50-5.40); RED CELL DISTRIBUTION WIDTH 13.6 % (11.5-14.5); WHITE BLOOD COUNT 17.8 x10^3/uL (4.0-11.0)
[2019-07-03 20:43] LABS: CALCIUM 8.4 mg/dL (8.5-10.1); CREATININE 0.8 mg/dL (0.6-1.0); GFR 67.5
--- NOTE | 2019-07-03 20:46 | RAD ---
INDICATION: Dyspnea COMPARISON: June 30, 2019 FINDINGS: Single view of chest obtained. Interstitial opacities are again seen bilaterally as well as a hazy opacity at the right lung base. Cardiac mediastinal silhouette is mildly prominent but similar to prior. Degenerative changes of the spine. Air-filled prominence of loop of bowel left upper quadrant again seen and could be stomach bubble.Degenerative changes of shoulders. IMPRESSION: * Repeat demonstration of interstitial opacities bilaterally which could be from mild edema or interstitial infiltrate. There is also a focal opacity at the right lung base which could be from atelectasis, infiltrate or aspiration with a component of small pleural effusion also within the differential. Electronically signed by: Farhan Ibarra MD (07/03/2019 8:42 PM) [id number]
[2019-07-03 20:56] LABS: ALBUMIN 2.1 g/dL (3.4-5.0); DIRECT BILIRUBIN 0.2 mg/dL (0.0-0.2); MAGNESIUM 1.4 mg/dL (1.8-2.4); TOTAL BILIRUBIN 0.5 mg/dL (0.2-1.0); TOTAL PROTEIN 6.4 g/dL (6.4-8.2)
[2019-07-03 21:01] LABS: % BANDS 3 % (0-9); % LYMPHS 10 % (24-48); % MONOS 7 % (0-10); % SEGS 80 % (35-66); HYPERSEGS PRESENT; PLT ESTIMATE ADEQUATE (ADEQUATE)
[2019-07-03 21:19] LABS: BARBITURATES NEG (NEG); BENZODIAZEPINES NEG (NEG); CANNABINOIDS NEG (NEG); COCAINE NEG (NEG); METHADONE NEG (NEG); OPIATES NEG (NEG); PHENCYCLIDINE NEG (NEG)
[2019-07-03 21:20] LABS: AMPHETAMINE/METHAMPHETAMINE NEG (NEG)
[2019-07-03 21:23] LABS: CLARITY,URINE CLEAR; COLOR,URINE YELLOW; GLUCOSE,URINE NEG (NEG)
[2019-07-03 21:24] LABS: BACTERIA,URINE 0 /HPF (0-FEW); BILIRUBIN,URINE NEG (NEG); GRANULAR CASTS,URINE OCC /HPF; NITRITE,URINE NEG (NEG); RBC,URINE OCC /HPF (0-2); SQUAMOUS EPITHELIAL CELL,UR FEW /LPF; UROBILINOGEN,URINE 0.2 mg/dL (0.2 mg/dL); WBC,URINE OCC /HPF (0-4)
--- NOTE | 2019-07-03 21:40 | RAD ---
Right lower extremity venous duplex Doppler ultrasound HISTORY: Right leg pain, edema and erythema. FINDINGS: No DVT by grayscale imaging with compressibility, patent color Doppler blood flow and augmentation of blood flow and respiratory variability right common femoral vein, greater saphenous vein in the upper thigh, profunda femoral vein, superficial femoral vein and popliteal vein. No DVT evident with patent color Doppler blood flow the posterior tibial peroneal veins in the calf. IMPRESSION: Negative right leg for DVT. Electronically signed by: Black Traylor MD (07/03/2019 9:37 PM) [facility]
[2019-07-03] MEDS ORDERED: VANCOMYCIN 1 GM in IV NORMAL SALINE 250ML 250 ML IV ONE (22:45)
[2019-07-03] MEDS ORDERED: ACETAMINOPHEN 325 MG TABLET PO PRN (22:45)
[2019-07-03] MEDS ORDERED: ONDANSETRON PF 4 MG/2 ML VIAL. IVP PRN (22:45)
[2019-07-03] MEDS: SODIUM BICARBONATE 50 MEQ/50 ML VIAL. IV ONE (23:04)
[2019-07-03] MEDS: MAGNESIUM SULFATE 2GM 50 ML IV ONE (23:05)
[2019-07-03] MEDS ORDERED: IV NORMAL SALINE 250ML 250 ML ONE (23:12)
[2019-07-03] MEDS ORDERED: VANCOMYCIN 1 GM VIAL. ONE (23:12)
[2019-07-03] MEDS: AZITHROMYCIN 250 MG TABLET. PO ONE (23:17)
[2019-07-03] MEDS: VANCOMYCIN 1 GM in IV NORMAL SALINE 250ML 250 ML IV ONE (23:17)
[2019-07-03] MEDS ORDERED: VANCOMYCIN 1.75 GM in IV NORMAL SALINE 500ML 500 ML IV ONE (23:30)
[2019-07-04 02:36] VITALS: BP 131/71
--- NOTE | 2019-07-04 02:44 | NUR ---
The patient, DAVID TERRAZAS, 88 y/o, F admitted by GERBER SULLIVAN MD, was given written information regarding hospital policies, unit procedures and contact persons. Valuables were checked and noted. PT released from hospital and readmitted same day for same. Pictures taken, see chart. Reviewed with the PT her PMH, PSH, SH, FH and medications. PT able to transfer from to BS and bed at home. PT very weak here, max assist of 3 persons.
--- NOTE | 2019-07-04 02:47 | NUR ---
PT stated she had filled her 2 new medications but had yet to start them before readmission.
[2019-07-04 05:52] LABS: BASO % 0 % (0-3); EOS % 0 % (0-3); HEMATOCRIT 29.6 % (36.0-47.0); HEMOGLOBIN 9.8 g/dL (12.0-15.5); LYMPH # 2.2 x10^3/uL (1.0-4.8); LYMPH % 17 % (24-48); MEAN CORPUSCULAR HEMOGLOBIN 31 pg (25-35); MEAN CORPUSCULAR HGB CONC 33 g/dL (31-37); MEAN CORPUSCULAR VOLUME 94 fL (79-100); MONO # 1.3 x10^3/uL (0.0-1.1); MONO % 10 % (0-9); NEUT # 9.6 x10^3uL (1.8-7.7); NEUT % 73 % (31-73); PLATELET COUNT 291 x10^3/uL (140-400); RED BLOOD COUNT 3.17 x10^6/uL (3.50-5.40); RED CELL DISTRIBUTION WIDTH 13.7 % (11.5-14.5); WHITE BLOOD COUNT 13.2 x10^3/uL (4.0-11.0)
[2019-07-04 05:54] LABS: CREATININE 0.6 mg/dL (0.6-1.0); GFR 94.1; POTASSIUM 4.2 mmol/L (3.5-5.1)
[2019-07-04 06:34] VITALS: BP 133/72
[2019-07-04] MEDS: IOHEXOL 350 MG/ML 100 ML VIAL. IV ONE (09:42)
--- NOTE | 2019-07-04 10:17 | RAD ---
Examination: CT angiography chest HISTORY: History of cough, shortness of breath COMPARISON: None TECHNIQUE: Axial CT images were performed with IV contrast. Coronal and sagittal 3-D MIP reformats are performed Exposure: One or more of the following individualized dose reduction techniques were utilized for this examination: 1. Automated exposure control 2. Adjustment of the mA and/or kV according to patient size 3. Use of iterative reconstruction technique Findings: 1.7 cm hypodense nodule identified in the right lobe of thyroid gland. There is a 3 cm hypodense nodule identified in the left lobe of the thyroid gland. Retrosternal extension of the left lobe of the thyroid gland. The central airways are patent. Moderate cardiomegaly. Mild elevation of the right hemidiaphragm. No evidence of filling defect identified in the main pulmonary arterial trunk and right and left main pulmonary arteries. Questionable tiny filling defect or artifact identified in the distal peripheral branches of the left upper lobe pulmonary arterial branches. Patchy airspace opacities identified in the bibasilar lungs. Honeycombing interstitial changes identified in the bibasilar lungs could be secondary to pulmonary fibrosis. The liver, spleen, adrenals grossly appears unremarkable. IMPRESSION: 1. Questionable filling defect or artifact identified in the very peripheral distal branch of the left upper lobe pulmonary arteries could be artifactual or small peripheral pulmonary embolus. 2. Bibasilar lung airspace opacities likely atelectasis or infiltrates. Honeycombing changes identified in the bibasilar lungs probably pulmonary fibrosis. 3. Hypodense nodules identified in the thyroid gland. Follow-up ultrasound thyroid can be considered. Electronically signed by: David Browne MD (07/04/2019 10:14 AM) [id number]
[2019-07-04] MEDS: CETIRIZINE HCL 10 MG TABLET PO SCH (10:25)
[2019-07-04] MEDS: ISOSORBIDE MONONITRATE ER 30 MG TAB.ER.24H PO SCH (10:25)
[2019-07-04] MEDS: METOPROLOL TART IMMED RELEASE 25 MG TABLET PO SCH (10:25)
[2019-07-04] MEDS: hydroCHLOROthiazide 12.5 MG CAPSULE PO SCH (10:26)
[2019-07-04] MEDS: ASPIRIN CHEWABLE 81 MG TABLET. PO SCH (10:26)
[2019-07-04] MEDS: MAGNESIUM OXIDE 400 MG TABLET PO SCH (10:26)
[2019-07-04 10:44] VITALS: BP 128/71
[2019-07-04] MEDS: ALBUTEROL SULFATE 2.5 MG/3 ML NEBU. NEB PRN (12:30)
[2019-07-04 15:05] VITALS: BP 114/57
--- NOTE | 2019-07-04 16:59 | NUR ---
VINCENT NOTE; DISCHARGE WRITTEN AND VERBAL DISCHARGE INSTRUCTIONS GIVNE TO PT AND HER SON WRITTEN RX X1 GIVEN TO PT AND SON DISCHARGED TO HOME AT 1650 VIA W/C ACCOMP BY SON
--- NOTE | 2019-07-04 18:10 | SSS ---
ADMIT DATE: 07/04/2019 HISTORY OF PRESENT ILLNESS: The patient is an 88-year-old female patient who was discharged yesterday after she was treated for community-acquired pneumonia and also mild left lower extremity cellulitis. She initially had leukocytosis. Her white cell count was 18,300 and by the time she went home, her white cell count was 9400. Her bilateral lower extremity edema has actually mostly resolved and we treated her with IV Lasix. I discontinued her Norvasc. Apparently, there was a small area of erythema behind the back of her left upper extremity slightly above the ankle joint that I have not really seen myself, but the larger area of erythema on the anterior aspect of her right leg has largely or completely subsided. Apparently, by the time she arrived home, the family told that she has DVT and immediately called the primary care physician who recommended transferring her back to the Emergency Room where she was evaluated. She has had bilateral lower extremity venous Doppler ultrasound that was negative. Her chest x-ray again redemonstrated interstitial opacities bilaterally, which could be mild edema or interstitial infiltrate. There is also focal opacity of the right lung base, which could be atelectasis, infiltrate or aspiration with a component of small pleural effusion also within the differential. We did actually even a CT angio of the chest, which basically questionable filling defects or artifact identified in the very peripheral distal branch of the left upper lobe pulmonary arteries, could be artifactual or small peripheral pulmonary embolus. She has bibasilar lung airspace opacities, likely atelectasis, infiltrate on account of being changes identified in the bibasilar lungs, probably pulmonary fibrosis. She has hypodense nodule identified in thyroid gland. Followup ultrasound of the thyroid can be considered. She was admitted and continued on all her medications. She was evaluated in the Emergency Room and started on IV Zyvox 600 mg twice a day to continue with Zithromax and cefdinir as before. PAST MEDICAL HISTORY: Significant for hyperlipidemia, hypertension, bronchial asthma, COPD. She does have history of pneumonia, gastroesophageal reflux disease, history of Clostridium difficile colitis and last time she was admitted for pneumonia. She has also chronic renal failure, chronic pain syndrome, type 2 diabetes, chronic sinusitis and probably pulmonary fibrosis. PAST SURGICAL HISTORY: Significant for cholecystectomy as well as lumpectomy. ALLERGIES: She has no known drug allergies. MEDICATIONS: She is currently on following medications: She is on cetirizine 10 mg once a day, cefdinir 300 mg twice a day, azithromycin 250 mg daily, tiotropium bromide for Spiriva HandiHaler 1 inhalation once a day, albuterol sulfate 2.5 mg 3 mL by nebulizer every 4 hours, simvastatin 40 mg at bedtime, isosorbide mononitrate 30 mg daily, metoprolol tartrate 25 mg twice a day, aspirin 81 mg once a day, hydrochlorothiazide 12.5 mg once a day, Symbicort 80/4.5 two puffs twice a day, magnesium oxide 200 mg once a day. FAMILY HISTORY: Positive for hypertension in her mother and son, she also has lung cancer and her sister has lung cancer and was . SOCIAL HISTORY: She is , lives with her daughter. 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 She has never worked according to her. She used to smoke and smoked for a long time. She does not drink alcohol or use any recreational drugs. REVIEW OF SYSTEMS: As per history of present illness. PHYSICAL EXAMINATION: GENERAL: She was seen in the Emergency Room, she looked well and was clearly in no apparent respiratory distress. No pallor, jaundice, cyanosis or thyromegaly. No jugular venous distention. No lower limb edema. VITAL SIGNS: Her heart rate was 91, blood pressure 117/54, temperature was 99.4, respiratory rate was 19 and oxygen saturation was 97%. HEAD, EYES, EARS, NOSE AND THROAT: Showed normocephalic, atraumatic. NECK: Supple. HEART: Showed normal first and second heart sounds. No gallop, rub or murmur. CHEST: Clear to auscultation. She has bilateral basal crepitation. I could not appreciate any rhonchi. ABDOMEN: Distended, soft, nontender. NEUROLOGIC: She was awake, alert, responding appropriately. All cranial nerves intact. EXTREMITIES: She moves upper extremities without difficulty; however, she has functional paraplegia. She is mostly bedbound, chair bound. LABORATORY DATA: Her white cell count on arrival was 17,800, hemoglobin 11.5, hematocrit 35, MCV 94 and platelet count of 367,000. Her chemistry showed a serum sodium of 130, potassium 5, chloride 92, bicarbonate 31, anion gap of 7, BUN 14, creatinine 0.8, estimated GFR was 67. Her glucose was 210, calcium was 8.4, magnesium was 1.4. Total bilirubin, AST, ALT, alkaline phosphatase were normal. Total protein was 6.4 and albumin was 2.1. Lipase was 86. Her prothrombin time on arrival was 10.9, INR 1.1, aPTT was 28 and D-dimer was 2.15. Her urinalysis essentially unremarkable. Toxic screen was essentially negative. She did have venous Doppler ultrasound of both lower extremities, which showed no DVT in the right lower extremity. Given elevated D-dimer, she also had a CT angio of the chest, which basically showed questionable filling defect or artifact identified in the very peripheral distal branch of the left upper lobe pulmonary arteries, could be artifactual or small peripheral pulmonary embolus. She has bibasilar lung airspace opacities, likely atelectasis or infiltrate on account of being changes identified in the bibasilar lungs, probably pulmonary fibrosis, hypodense nodules identified in the thyroid gland. At that time, she was discharged home. She was hemodynamically stable. Her heart rate was 80, blood pressure was 114/57, temperature was 97.4, respiratory rate was 20, and oxygen saturation was 95%. The rest of exam is stable. Her lab works also well within normal range. She was discharged again. She was discharged home to continue on all her medications including cefdinir and Zithromax together with a prescription for Zyvox 600 mg twice a day for another 9 days to treat the left lower extremity cellulitis. FINAL DISCHARGE DIAGNOSES: 1. Community-acquired pneumonia. 2. Right lower extremity edema. 3. Acute kidney injury, improved. 4. The patient has multiple other medical problems including: A. Hyperlipidemia. B. Hypertension. C. Bronchial asthma. D. Chronic obstructive pulmonary disease. E. Gastroesophageal reflux disease. F. History of Clostridium difficile colitis. G. Chronic renal failure. H. Chronic pain syndrome. I. Type 2 diabetes mellitus. GERBER SULLIVAN MD DR: RAGHU/wayne JOB#: [id number] / [id number]
[2019-07-04 19:07] LABS: THYROID STIM HORMONE (TSH) 0.594 uIU/mL (0.358-3.740)
[2019-07-04] MEDS ORDERED: LACTOBACILLUS RHAMNOSUS GG 1 CAPSULE. PO SCH (21:00)
[2019-07-04] MEDS ORDERED: AZITHROMYCIN 250 MG TABLET. PO SCH (21:00)
[2019-07-04] MEDS ORDERED: SIMVASTATIN 40 MG TABLET. PO SCH (21:00)
== END 2019-07-04 16:50 | disposition home health service (06) | DRG 602 ==
LOC: ER 19:32 → 1 SOUTH 22:30 → OBSVTOIN 07-04 08:14
PROVIDERS: ADMIT Internal Medicine; ATTEND Internal Medicine
DX: L03.116 Cellulitis of left lower limb (principal); J18.9 Pneumonia, unspecified organism; I26.99 Other pulmonary embolism without acute cor pulmonale; E43 Unspecified severe protein-calorie malnutrition; N17.9 Acute kidney failure, unspecified; E87.1 Hypo-osmolality and hyponatremia; J44.0 Chronic obstructive pulmonary disease with (acute) lower respiratory infection; J98.11 Atelectasis; J84.10 Pulmonary fibrosis, unspecified; D64.9 Anemia, unspecified; E11.22 Type 2 diabetes mellitus with diabetic chronic kidney disease; E78.5 Hyperlipidemia, unspecified; E83.42 Hypomagnesemia; G89.4 Chronic pain syndrome; I12.9 Hypertensive chronic kidney disease with stage 1 through stage 4 chronic kidney disease, or unspecified chronic kidney disease; K21.9 Gastro-esophageal reflux disease without esophagitis; N18.9 Chronic kidney disease, unspecified; Z80.1 Family history of malignant neoplasm of trachea, bronchus and lung; Z82.49 Family history of ischemic heart disease and other diseases of the circulatory system; Z86.19 Personal history of other infectious and parasitic diseases; Z87.01 Personal history of pneumonia (recurrent); Z87.891 Personal history of nicotine dependence; Z68.31 Body mass index [BMI] 31.0-31.9, adult; Z90.49 Acquired absence of other specified parts of digestive tract
CPT/HCPCS: 36415; 71045; 71275; 80048; 80061; 80076; 80307; 81001; 82550; 82947; 83690; 83735; 83880; 84443; 84484; 85007; 85025; 85379; 85610; 85730; 93005; 93971; 94640; 96365; 96366; 96368; 96375; G0238; G0378; G0379; J0456; J2020; J3370; J3475; J7050; J7120; P9612; Q9967; 97530; 99285-25; J7613